=== PATIENT | female | born 1990 | race Caucasian/White ===

== ENCOUNTER 2021-04-29 11:30 | Emergency (ER) | payer OTHER ==
[~2021-04-29] VITALS: Ht 149.9 cm; Wt 70.8 kg
[2021-04-29 11:34] VITALS: BP 145/90
--- NOTE | 2021-04-29 11:43 | NUR ---
pt c/o rectal pain with diarrhea x2 days hx of ulerative colitis and feels this may be a flare up. nad. safety maintained
--- NOTE | 2021-04-29 12:24 | NUR ---
Female Landscape Management Technician accompanied female patient for Rectal Exam.
[2021-04-29 12:39] LABS: BASOPHILS % (AUTO) 0.6 % (0.0-2.0); EOSINOPHILS # (AUTO) 0.2 K/uL (0-0.4); EOSINOPHILS % (AUTO) 2.8 % (0.0-4.0); HEMATOCRIT 30.4 % (36-48); HEMOGLOBIN 9.8 g/dL (12.0-16.0); LYMPHOCYTES # (AUTO) 1.5 K/uL (2.5-16.5); LYMPHOCYTES % (AUTO) 19.5 % (20.5-51.1); MEAN CORPUSCULAR HEMOGLOBIN 25 pg (27-31); MEAN CORPUSCULAR HGB CONC 32 g/dL (33-37); MEAN CORPUSCULAR VOLUME 77.3 fL (80-94); MONOCYTES # (AUTO) 0.5 K/uL (0.8-1.0); MONOCYTES % (AUTO) 7.1 % (1.7-9.3); NEUTROPHILS # (AUTO) 5.2 K/uL (1.8-7.7); PLATELET COUNT (AUTO) 417 K/uL (140-450); RED BLOOD CELL COUNT(AUTO) 3.93 MIL/uL (4.20-5.40); RED CELL DISTRIBUTION WIDTH 17.8 % (11.6-13.7); WHITE BLOOD COUNT (AUTO) 7.4 K/uL (4.8-10.8)
[2021-04-29 12:48] LABS: ALBUMIN 3.2 g/dL (3.4-5.0); ANION GAP 11.2 (8-16); CARBON DIOXIDE 25.7 mmol/L (21-32); CREATININE 0.6 mg/dL (0.6-1.3); POTASSIUM 3.9 mmol/L (3.5-5.1); TOTAL BILIRUBIN 0.2 mg/dL (0.0-1.0)
[2021-04-29] MEDS ORDERED: LIDO100S TOP (12:58)
[2021-04-29 13:09] VITALS: BP 112/68
--- NOTE | 2021-04-29 13:10 | NUR ---
Patient discharged with v/s stable. Written and verbal after care instructions given and explained. Patient verbalized understanding. Ambulatory with steady gait. All questions addressed prior to discharge. Advised to follow up with PMD.
== END 2021-04-29 13:09 | disposition home or self-care (01) ==
LOC: MED 11:30
DX: K51.90 Ulcerative colitis, unspecified, without complications (principal); L22 Diaper dermatitis; K21.9 Gastro-esophageal reflux disease without esophagitis
CPT/HCPCS: 36415; 80053; 81025; 85025; 99283